=== PATIENT | male | born 1960 | race Caucasian/White ===

== ENCOUNTER 2019-12-31 12:31 | Outpatient (CLI) | payer OTHER, SELFPAY ==
--- NOTE | 2019-12-31 13:07 | MR_ITS ---
WS: [id number] MRI LUMBAR SPINE NONCONTRAST TECHNIQUE: Sagittal T1, T2 and STIR imaging. Axial T1 and T2 imaging. CLINICAL INFORMATION: LOW BACK PAIN COMPARISON: None. FINDINGS: Mild lumbar curve. No acute compression. No high-grade central canal stenosis. L1-L2: Slight annular bulging. Slight narrowing of the left subarticular recess. Spinal canal and for amen are patent. Mild facet arthropathy. L2-L3: Mild annular bulging with slight narrowing of the right subarticular recess. Mild right and no significant left foraminal narrowing. Mild to moderate facet arthropathy. L3-L4: Mild disc bulging with osteophytic ridging. Slight narrowing of the subarticular recess bilate rally. Mild bilateral foraminal narrowing. Moderate facet arthropathy. L4-L5: Mild disc bulging with osteophytic ridging. Slight impingement traversing right L5 nerve root. Mild right greater than left foraminal narrowing. Moderate facet arthropathy. L5-S1: Asymmetric moderate right facet arthropathy. Mild disc bulging with slight effacement of ventr al thecal sac and impingement right S1 nerve root. Mild right and no significant left foraminal narro wing. Normal sacral bony structures. Visualized pelvic bony structures: Normal. Paravertebral soft tissues: Normal. MR/MR lumbar spine wo con* [id number] IMPRESSION: 1. Mild lumbar curve. No acute compression. No high-grade central canal stenos is. 2. Mild disc bulging L3-L4 L4-L5 with slight impingement on the right subartic ular recess L3-L4 and L4-L5. 3. Disc bulging L5-S1 with impingement on the traversing right S1 nerve root a nd mild right foraminal narrowing. 4. Mild to moderate foraminal narrowing described above worse at right L3-4 an d right L4-5. 5. Moderate facet arthropathy L3-L4,L4-L5, and right L5-S1.
== END 2019-12-31 12:32 | disposition home or self-care (01) ==
PROVIDERS: PCP Nurse Practitioner; Visit Provider Nurse Practitioner
DX: M51.26 Other intervertebral disc displacement, lumbar region (principal); M47.816 Spondylosis without myelopathy or radiculopathy, lumbar region; M48.061 Spinal stenosis, lumbar region without neurogenic claudication
CPT/HCPCS: 72148

== ENCOUNTER → 2020-01-17 10:57 | Outpatient (BNVA) | payer OTHER, SELFPAY | PROVIDERS: PCP Nurse Practitioner; Visit Provider Urology | DX: C67.9 Malignant neoplasm of bladder, unspecified (principal) | CPT/HCPCS: 81001; 88112 ==

== ENCOUNTER 2020-01-29 06:50 | Day surgery (SDC) | payer OTHER, SELFPAY ==
[2020-01-25 12:27] VITALS: BMI 32.3
[2020-01-29 07:07] VITALS: RESP 18; TEMP 36.2
[2020-01-29 07:09] VITALS: BP 166/108; PULSE 58; RESP 18; TEMP 36.2
[2020-01-29] MEDS: sodium chloride 0.9% 1,000 ML 30 ML IV (07:23)
--- NOTE | 2020-01-29 07:24 | ANES.PREANE2 ---
Pre-Anesthetic Assessment Pre-Anesthetic Assessment: Height/Weight: Height 1.85 m Weight 111.13 kg Temp Pulse Resp BP 97.2 F L 58 L 18 166/108 01/29/20 07:09 01/29/20 07:09 01/29/20 07:09 01/29/20 07:09 Preop Diagnosis: Incontinence Proposed Procedure: Operation Date: 01/29/20 08:00 Proposed Procedures p Colonoscopy 15377 R15.9(Not Applicable) - Anatoliy Pope MD Familial anesthetic complications: woke up during last scope Last intake: Intake Last Liquid Date 01/28/20 Last Liquid Time 22:00 Last Solid Date 01/28/20 Last Solid Time 07:00 Social: Social History: No alcohol and No tobacco Exam: Pre-Anes Outpt Exam: alert, oriented x 3, clear to auscultation bilaterally and regular rate & rhythm Airway: Cervical ROM: WNL (cervical disc pain) MP: 2 Dentition: Chipped and Caps Pulmonary: Pulmonary: Sleep apnea (bipap) CV/HEM: CV/HEM: HTN Metabolic: Metabolic: Thyroid (nodules) Musc/skel: Comments: muscle twitching/pain in legs due to lumbar spine Anesthetic Plan: ASA status: 2 Anesthesia: MAC Risk of > 500 ml blood loss (7ml/kg in children): No Meds/Allergies Current Medications: Current Medications Generic Name Dose Route Start Last Admin Trade Name Freq PRN Reason Stop Dose Admin Sodium Chloride 1,000 mls @ 30 ml s/hr 01/29/20 07:15 01/29/20 07:23 Sodium Chloride 0.9% IV 30 mls/hr .Q24H DARBY Administration PFSH Anesthesia PFSH: Medical History Bladder cancer BPH (benign prostatic hyperplasia) Cervical radiculopathy Degeneration of intervertebral disc Hyperlipidemia Hypertension Incontinence of bowel Sleep apnea Surgical History H/O circumcision H/O colonoscopy 2014 H/O transurethral destruction of bladder lesion Family History Father , in his 60's Cancer brain stem cancer Sister Cancer Mother Cancer Denies family history of Diabetes Anesthesia complication Bleeding disorder Social History Smoking and tobacco status: former smoker Alcohol intake: never Household members: children Marital status: Current occupational status: disabled History of recent travel: No Data Anesthesia Cardiac Studies: No Data to Display
--- NOTE | 2020-01-29 07:49 | W.PM.OPSUD ---
Surgery/Procedure H&P Update DATE OF PROCEDURE: January 29, 2020 DATE H&P PERFORMED: 01/07/20 H&P UPDATE INFORMATION: I have reviewed H&P completed within last 30 days, I have examined patient prior to procedure and No changes to prior documentation PREOP DIAGNOSIS: Incontinence PLANNED PROCEDURE: Operation Date: 01/29/20 08:00 Proposed Procedures p Colonoscopy 77321 R15.9(Not Applicable) - Anatoliy Pope MD
[2020-01-29 08:07] VITALS: BP 123/82; PULSE 66; RESP 16; TEMP 36.4; O2SAT 94
--- NOTE | 2020-01-29 08:10 | ANE.PACU2 ---
Inpatient post-anesthesia follow up: Airway intact: Yes Vital signs: Temperature 97.5 F Pulse Rate 66 Respiratory Rate 16 Blood Pressure 123/82 Pulse Oximetry 94 Oxygen Delivery Me thod Nasal Cannula Oxygen Flow Rate 3 Fraction of Inspir ed Oxygen Hydration adequate: Yes Nausea and vomiting: No Pain level: 1 Mental status: Baseline
[2020-01-29 08:18] VITALS: BP 122/98; PULSE 64; RESP 18; O2SAT 95
== END 2020-01-29 08:23 | disposition home or self-care (01) ==
PROVIDERS: PCP Nurse Practitioner; Visit Provider Surgery
PROC: 0DJD8ZZ Inspection of Lower Intestinal Tract, Via Natural or Artificial Opening Endoscopic (ICD-10-PCS; CPT 45378; principal; 2020-01-29 08:00)
DX: K57.30 Diverticulosis of large intestine without perforation or abscess without bleeding (principal); K64.8 Other hemorrhoids; I10 Essential (primary) hypertension; G47.30 Sleep apnea, unspecified; E04.2 Nontoxic multinodular goiter; E78.5 Hyperlipidemia, unspecified; N40.0 Benign prostatic hyperplasia without lower urinary tract symptoms; M54.12 Radiculopathy, cervical region; Z85.51 Personal history of malignant neoplasm of bladder; Z86.010 Personal history of colon polyps; Z87.891 Personal history of nicotine dependence
CPT/HCPCS: 12345; 45378; J2704; J7030

== ENCOUNTER 2020-08-05 10:45 | Outpatient (CLI) | payer OTHER, SELFPAY ==
--- NOTE | 2020-08-05 10:52 | MR_ITS ---
WS: [id number] MRI CERVICAL SPINE NONCONTRAST HISTORY: CERVICALGIA COMPARISON: None available. Technique: Multiplanar, multisequence noncontrast imaging of the cervical spine. Very mild straightening of the normal lordosis. Mild disc space narrowing and desiccation throughout the cervical spine. Most significant at C4-5 and C5-6. Signal within the cervical cord is normal. Visualized posterior fossa is unremarkable. Craniocervical junction, C1 and C2 relationship, odontoid process and soft tissues are normal. C2-C3: Normal. C3-C4: Small bilateral foraminal osteophytes without significant stenosis. C4-C5: Diffuse annular disc bulging with a moderate central disc protrusion. Effacement of CSF and co ntact of the disc upon the ventral cord but no displacement. Small foraminal osteophytes and disc pro trusions. [id number] central and bilateral foraminal stenosis. C5-C6: Diffuse annular disc bulging with bilateral disc osteophyte complexes and the foramen. More fo zhang LEFT paracentral disc osteophyte complex. Mild central and LEFT foraminal stenosis. C6-C7: Diffuse annular disc bulging with mild facet arthritis. Mild osteophytic ridging around the ve rtebral bodies. Mild central and bilateral foraminal stenosis. C7-T1: Normal. Paraspinal soft tissue are normal. MR/MR cervical spin wo con* [id number] IMPRESSION: 1. Mild to moderate central and bilateral foraminal stenosis at C4-5 with mild disc osteophyte contact on the ventral cord. 2. Mild central LEFT foraminal stenosis at C5-6 due to disc osteophyte disease . 3. Mild central and bilateral foraminal stenosis at C6-7.
== END 2020-08-05 10:46 | disposition home or self-care (01) ==
LOC: RADSHAW 10:48
PROVIDERS: PCP Nurse Practitioner; Visit Provider Nurse Practitioner
DX: M48.02 Spinal stenosis, cervical region (principal); M25.78 Osteophyte, vertebrae
CPT/HCPCS: 72141

== ENCOUNTER → 2020-10-22 14:06 | Outpatient (BNVA) | payer OTHER, SELFPAY | PROVIDERS: PCP Nurse Practitioner; Referring Provider Nurse Practitioner; Visit Provider Podiatrist Foot & Ankle Surgery | DX: M19.071 Primary osteoarthritis, right ankle and foot (principal); M79.671 Pain in right foot | CPT/HCPCS: 73630 ==

== ENCOUNTER → 2021-12-29 10:13 | Outpatient (BNVA) | payer OTHER, SELFPAY | PROVIDERS: PCP Nurse Practitioner; Referring Provider Nurse Practitioner; Visit Provider Orthopaedic Surgery | DX: M17.11 Unilateral primary osteoarthritis, right knee (principal) | CPT/HCPCS: 99203 ==

== ENCOUNTER → 2022-01-19 09:01 | Outpatient (BNVA) | payer OTHER, SELFPAY | PROVIDERS: PCP Nurse Practitioner; Visit Provider Urology | DX: C67.9 Malignant neoplasm of bladder, unspecified (principal) | CPT/HCPCS: 52000; 99212 ==

== ENCOUNTER → 2022-01-25 10:17 | Outpatient (BNVA) | payer OTHER, SELFPAY | PROVIDERS: PCP Nurse Practitioner; Visit Provider Internal Medicine Cardiovascular Disease | DX: R00.1 Bradycardia, unspecified (principal); I10 Essential (primary) hypertension; E78.5 Hyperlipidemia, unspecified; Z87.891 Personal history of nicotine dependence | CPT/HCPCS: 99204 ==

== ENCOUNTER → 2022-08-02 12:55 | Outpatient (BNVA) | payer OTHER, SELFPAY | PROVIDERS: PCP Nurse Practitioner; Visit Provider Nurse Practitioner Family | DX: I10 Essential (primary) hypertension (principal); R00.1 Bradycardia, unspecified; Z87.891 Personal history of nicotine dependence | CPT/HCPCS: 99214 ==

== ENCOUNTER → 2022-11-29 08:26 | Outpatient (BNVA) | payer OTHER, SELFPAY | PROVIDERS: PCP Nurse Practitioner; Visit Provider Podiatrist Foot & Ankle Surgery | DX: M20.21 Hallux rigidus, right foot (principal); M19.071 Primary osteoarthritis, right ankle and foot | CPT/HCPCS: 73630; 99213 ==

== ENCOUNTER → 2023-01-31 14:53 | Outpatient (BNVA) | payer OTHER, SELFPAY | PROVIDERS: PCP Nurse Practitioner; Visit Provider Internal Medicine Cardiovascular Disease | DX: R00.1 Bradycardia, unspecified (principal); R55 Syncope and collapse | CPT/HCPCS: 93005; 99214 ==

== ENCOUNTER → 2023-04-25 07:52 | Outpatient (BNVA) | payer OTHER, SELFPAY | PROVIDERS: PCP Nurse Practitioner; Visit Provider Podiatrist Foot & Ankle Surgery | DX: M20.21 Hallux rigidus, right foot (principal); M19.071 Primary osteoarthritis, right ankle and foot | CPT/HCPCS: 99214 ==

== ENCOUNTER 2023-05-27 07:17 | Day surgery (SDC) | payer OTHER, SELFPAY ==
[2023-05-27] VITALS (11 sets, daily range): BP systolic 95–154; BP diastolic 64–88; PULSE 45–60; RESP 9–16; TEMP 36.1–36.6; O2SAT 97–100
[2023-05-27] MEDS: sodium chloride 0.9% 1,000 ML 30 ML IV (07:43)
--- NOTE | 2023-05-27 08:35 | ANES.PREANE2 ---
Pre-Anesthetic Assessment Height/Weight: Height 1.85 m Weight 92.986 kg Temp Pulse Resp BP Pulse Ox O2 Del Method 97.9 F 52 L 16 154/88 97 Room Air 05/27/23 07:31 05/27/23 07:31 05/27/23 07:31 05/27/23 07:31 05/27/23 07:31 05/27/23 07:44 Operation Date: 05/27/23 09:20 Proposed Procedures p Right first metatarsal phalangeal joint fusion 68952,M20.21,M79.671,M19.079(Right) - Solomon Orellana DPM Familial anesthetic complications: none Was Beta Jayson taken within 24 hours: N/A Was Clonidine taken within 24 hours: N/A Last intake: Intake Last Liquid Date 05/26/23 Last Liquid Time 20:30 Last Solid Date 05/26/23 Last Solid Time 20:30 Social No alcohol and No tobacco Exam alert, oriented x 3, clear to auscultation bilaterally and regular rate & rhythm Airway Submandibular: within normal limits Cervical ROM: within normal limits Mallampati: Class II Dentition: full CV/HEM Arrythmia and Hypertension Metabolic Hyperlipidemia Anesthetic Plan ASA status: 2 Anesthesia: Choice Medications/Allergies Home Medications Medication Instructions Recorded Confirmed Last Taken Type Functional Co-poly custom insole #1 11/29/22 04/25/23 Unknown Rx with monson's extension pad to right Orthopedic Shoes #1 ea 11/29/22 04/25/23 Unknown Rx diclofenac sodium 1 % topical gel 4 g topical QID #100 grams 11/29/22 05/27/23 05/26/23 Rx (Voltaren Arthritis Pain) Knee scooter #1 ea 04/25/23 04/25/23 Unknown Rx Allergies Allergy/AdvReac Type Severity Reaction Status Date / Time No Known Allergies Allergy Verified 05/27/23 07:36 Current Medications Generic Name Dose Route Start Last Admin Trade Name Freq PRN Reason Stop Dose Admin Sodium Chloride 1,000 mls @ 30 mls/hr 05/27/23 07:45 05/27/23 07:43 Sodium Chloride 0.9% IV 05/28/23 07:44 30 mls/hr .Q24H DARBY Administration PFSH Anesthesia Medical History Bladder cancer BPH (benign prostatic hyperplasia) Cervical radiculopathy Degeneration of intervertebral disc Hyperlipidemia Hypertension Incontinence of bowel Sleep apnea Surgical History H/O circumcision H/O colonoscopy (01/29/20) Diverticulosis, internal hemorrhoids, repeat in 10 years H/O transurethral destruction of bladder lesion Family History Father , in his 60's Cancer brain stem cancer Sister Cancer Mother Cancer Hypertension Social History Smoking and tobacco/nicotine status: former use of tobacco/nicotine Alcohol intake: never Substance/Drug Use: never Household members: children Marital status: Current occupational status: disabled Data Anesthesia Cardiac Studies: Cardiac Event Monitor 01/31/23
[2023-05-27] MEDS: midazolam 1 mg/mL INJ 2 mL 2 MG IVP (09:07)
--- NOTE | 2023-05-27 09:20 | W.PM.OPSUD ---
Surgery/Procedure H&P Update DATE OF PROCEDURE: May 27, 2023 DATE H&P PERFORMED: 01/07/20 H&P UPDATE INFORMATION: I have reviewed H&P completed within last 30 days, I have examined patient prior to procedure, No changes to prior documentation and H&P is in [facility] EMR on date indicated PLANNED PROCEDURE: Operation Date: 05/27/23 09:20 Proposed Procedures p Right first metatarsal phalangeal joint fusion 14313,M20.21,M79.671,M19.079(Right) - Solomon Orellana DPM
[2023-05-27] MEDS: ceFAZolin 2,000 MG in sodium chloride 0.9% (plus) 50 ML 100 MG IV (09:26)
[2023-05-27] MEDS: BUPivacaine liposome 13.3 mg/mL SDV 10 mL 266 MG INJECTION (09:41)
[2023-05-27] MEDS: BUPivacaine 0.5% INJ 30 mL 20 ML INJECTION (09:41)
--- NOTE | 2023-05-27 10:59 | PM.OP ---
Operative Report Date of procedure: May 27, 2023 Pre-op diagnosis: Right hallux rigidus Post-op diagnosis: Right hallux rigidus Procedure done: Right first metatarsal phalangeal joint fusion. CPT code 28354 Implants: [place] first MTP arthrodesis plate [place] 2.7 mm locking screws, to [place] 3.5 mm locking and nonlocking screws. [place] 3.0 mm homerun screw. 3-0 Vicryl, 4-0 Vicryl, 4-0 nylon Specimens removed/disposition: None Pathology: None Surgeon: Solomon Orellana DPM Product Management Internship: Dejah Pichardo Estimated blood loss: 2 40 IV fluids: 0 Urine output: 0 Complications: None Brief History: I reviewed at length with the patient, the risks, potential complications, benefits, alternatives, expectations, and typical outcomes associated with the surgery. The risks and potential complications were explained in detail, including but not limited to infection, wound dehiscence or soft tissue complications, bleeding and hematoma, chronic edema, neuritis or nerve damage producing numbness or chronic pain, CRPS, failure to relieve pain or worsening pain, thick / painful / unsightly scar, limited motion / stiffness, malposition, delayed union, malunion, or nonunion, fracture, reaction to implants, anesthetic complications, venous thromboembolism, and deformity recurrence. I discussed the notion of no regrets with the patient as it pertains to complications and outcomes. The patient seemed to understand the nature of the proposed care and required convalescence. They asked appropriate questions, answered to their satisfaction. They are aware no guarantees can be made as to a satisfactory outcome and they understand there may be other possible unforeseen complications or outcomes not listed here that will be treated accordingly if they arise. There were no written or implied guarantees given to the patient. They gave informed consent to proceed. Procedure: Under mild sedation the patient was brought to the operating room remained on the gurney in supine position. A timeout was performed. Anesthesia was then administered by the anesthesia service. Local anesthesia injected by myself consisting of 20 cc of 0.5 to Marcaine plain in a right foot Young block fashion with additional 20 cc infiltrated subcutaneously in a grid like fashion at the operative site. Well-padded pneumatic tourniquet applied to the right ankle. The right lower extremity was scrubbed, prepped and draped utilizing normal aseptic technique. Right foot was exanguinated with an Esmarch bandage and tourniquet inflated to 250 mmHg. Tension was directed to the dorsal aspect of the right first metatarsal phalangeal joint where a linear longitudinal incision was made medial and parallel to the extensor hallucis longus tendon through skin. Dissection was carried down through subcutaneous tissue to the layer of joint capsule utilizing sharp and blunt technique. Care was taken to retract and preserve neurovascular and tendinous structures. All bleeders were ligated and cauterized as necessary. Dorsal osteophytes were encountered and loose chondral bodies at the dorsal aspect of the first metatarsal phalangeal joint. Less than 10 degrees of dorsiflexion appreciated intraoperatively at this time at the first metatarsal phalangeal joint. Head of the first metatarsal and base of the proximal phalanx were denuded of articular surface and remodeled to normal contour utilizing a rongeur and oscillating saw. Incision was irrigated skin solution. Cone and cup reamers were utilized to denude the articular surface at the arthrodesis site followed by saline flush then subchondral drilling with fenestrating drill bit. Toe was held in rectus position and then position slightly valgus with neutral frontal plane and slight dorsiflexion followed by dorsal locking plate fixation with 2.7 millimeter screws distally and 3.5 millimeter screws proximally and a 3 mm homerun screw with excellent bony apposition and compression noted. AP, oblique and lateral views confirmed excellent placement of hardware without violating adjacent joints. The incision was irrigated with saline solution. Loading the right foot with a flat plate demonstrated excellent position and purchase of the right great toe. The incision was then closed in a layered fashion with capsule being reapproximated with 3-0 Vicryl, subcutaneous tissue reapproximated 4-0 Vicryl and skin with 4-0 nylon. The incision was dressed with Adaptic, sterile 4 x 4's, Kerlix and Sinan wrap followed by application of a cam boot. Tourniquet was deflated and a prompt hyperemic response was noted to the distal digits of the right foot. Patient tolerated the procedure and anesthesia well and was transferred to the PACU with vital signs stable and vascular status intact. Following a period of postoperative monitoring be discharged home is to be nonweightbearing to the right foot and elevate right foot while resting at all times he is to remain immobilized with a cam boot at all times of the right foot. Was given at home care instructions, scheduled follow-up and my cell phone number to contact me with any postoperative questions or concerns.
--- NOTE | 2023-05-27 11:00 | W.PM.BPON ---
Date of Procedure: 05/27/23 Surgeon: Solomon Orellana DPM Wire Turning Machine Operator(s): Marino Pond Procedure(s) performed: Right first metatarsal phalangeal joint fusion Findings of the procedure(s): None Estimated blood loss: 2 mL Specimen(s) removed: None Post-operative diagnosis: Right hallux rigidus No complications with anesthesia or procedure.
[2023-05-27] MEDS: HYDROcodone-acetaminophen 10-325 mg Tablet 1 TAB PO (11:21)
[2023-05-27] MEDS: famotidine 20 mg/2 mL INJ IVP (11:57)
--- NOTE | 2023-05-27 14:05 | ANE.PACU2 ---
Inpatient post-anesthesia follow up: Airway intact: Yes Vital signs: Temperature 97.0 F Pulse Rate 48 Respiratory Rate 16 Blood Pressure 115/81 Pulse Oximetry 100 Oxygen Delivery Me thod Room Air Oxygen Flow Rate 6 Fraction of Inspir ed Oxygen Hydration adequate: Yes Nausea and vomiting: No Pain level: 1 Mental status: Baseline
--- NOTE | 2023-05-31 | XR_ITS ---
WS: [id number] INTRAOPERATIVE TECHNIQUE: 2 Spot fluoroscopic images for intraoperative purposes. FLUOROSCOPY TIME: 11 seconds CLINICAL INFORMATION: METATARSAL PHALANGEAL JOINT FUSION, OR PIC COMPARISON: None. FINDINGS: Plate and screw fixation first MTP. Images obtained for intraoperative purposes. IMPRESSION: Images obtained for intraoperative purposes.
== END 2023-05-27 11:47 | disposition home or self-care (01) ==
PROVIDERS: PCP Nurse Practitioner; Visit Provider Podiatrist Foot & Ankle Surgery
PROC: (CPT 28740; principal; 2023-05-27 09:10)
DX: M20.21 Hallux rigidus, right foot (principal); I10 Essential (primary) hypertension; E78.5 Hyperlipidemia, unspecified; Z85.51 Personal history of malignant neoplasm of bladder; N40.0 Benign prostatic hyperplasia without lower urinary tract symptoms; G47.30 Sleep apnea, unspecified; Z87.891 Personal history of nicotine dependence
CPT/HCPCS: 28750; 73620; 76000; C1713; C9290; J0690; J2250; J2704; J3490; J7030

== ENCOUNTER → 2023-06-09 13:45 | Outpatient (BNVA) | payer OTHER, SELFPAY | PROVIDERS: PCP Nurse Practitioner; Visit Provider Podiatrist Foot & Ankle Surgery | DX: Z98.890 Other specified postprocedural states (principal) | CPT/HCPCS: 73630; 99024 ==

== ENCOUNTER → 2023-06-23 14:12 | Outpatient (BNVA) | payer OTHER, SELFPAY | PROVIDERS: PCP Nurse Practitioner; Visit Provider Podiatrist Foot & Ankle Surgery | DX: Z98.890 Other specified postprocedural states (principal) | CPT/HCPCS: 73630; 99024 ==

== ENCOUNTER → 2023-07-07 12:40 | Outpatient (BNVA) | payer OTHER, SELFPAY | PROVIDERS: PCP Nurse Practitioner; Visit Provider Podiatrist Foot & Ankle Surgery | DX: Z98.890 Other specified postprocedural states (principal); Z12.11 Encounter for screening for malignant neoplasm of colon | CPT/HCPCS: 73630; 99024; 99203 ==

== ENCOUNTER → 2023-08-04 12:45 | Outpatient (BNVA) | payer OTHER, SELFPAY | PROVIDERS: PCP Nurse Practitioner; Visit Provider Podiatrist Foot & Ankle Surgery | DX: Z98.890 Other specified postprocedural states (principal) | CPT/HCPCS: 73630; 99024 ==

== ENCOUNTER → 2023-08-08 12:42 | Outpatient (BNVA) | payer OTHER, SELFPAY | PROVIDERS: PCP Nurse Practitioner; Visit Provider Internal Medicine | DX: R55 Syncope and collapse (principal); R00.1 Bradycardia, unspecified; I10 Essential (primary) hypertension; E78.5 Hyperlipidemia, unspecified; N40.0 Benign prostatic hyperplasia without lower urinary tract symptoms; Z87.891 Personal history of nicotine dependence | CPT/HCPCS: 99213 ==

== ENCOUNTER → 2023-09-29 12:18 | Outpatient (BNVA) | payer OTHER, SELFPAY | PROVIDERS: PCP Nurse Practitioner; Visit Provider Podiatrist Foot & Ankle Surgery | DX: M20.21 Hallux rigidus, right foot; M20.22 Hallux rigidus, left foot | CPT/HCPCS: 73630; 99213 ==

== ENCOUNTER 2023-11-17 05:44 | Day surgery (SDC) | payer OTHER, SELFPAY ==
--- NOTE | 2023-11-17 06:02 | W.PM.OPSFHP ---
Same Day Surgery H&P Indication for Procedure/HPI DATE OF PROCEDURE: November 17, 2023 CHIEF COMPLAINT/INDICATIONFOR SURGICAL PROCEDURE: need for screening colonoscopy and GERD PREOP DIAGNOSIS: GERD PLANNED PROCEDURE: Operation Date: 11/17/23 07:00 Proposed Procedures s 35995 colonoscopy G0121 screen colon a risk Z12.11(Not Applicable) - Cabrera Ferrell MD p EGD 33840, R13.10(Not Applicable) - Cabrera Ferrell MD Medications/Allergies* Home Medications Medication Instructions Recorded Confirmed Type hydrocodone 10 mg-acetaminophen 1 tab PO Q6H PRN Pain 07/07/23 11/15/23 History 325 mg tablet diclofenac sodium 1 % topical gel 4 g topical QID PRN Pain 11/15/23 11/15/23 History (Voltaren Arthritis Pain) Allergies/Adverse Reactions Allergy/AdvReac Type Severity Reaction Status Date / Time No Known Allergies Allergy Verified 11/15/23 12:50 Pertinent History/Comorbid Conditions* Medical History (Updated 09/29/23 @ 12:45 by Solomon Orellana DPM) Incontinence of bowel Sleep apnea Degeneration of intervertebral disc Cervical radiculopathy Hyperlipidemia BPH (benign prostatic hyperplasia) Hypertension Bladder cancer Surgical History (Updated 05/27/23 @ 10:32 by Solomon Orellana DPM) H/O transurethral destruction of bladder lesion H/O circumcision H/O colonoscopy (01/29/20) Diverticulosis, internal hemorrhoids, repeat in 10 years Family History (Updated 01/25/22 @ 10:35 by Vandana Marsh RN) Father, in his 60's Cancer Father brain stem cancer Sister Mother Hypertension Mother Social History Smoking and tobacco/nicotine status: former use of tobacco/nicotine Alcohol intake: never Substance/Drug Use: never Household members: children Marital status: Current occupational status: disabled Pertinent Exam Findings alert, oriented x 3, clear to auscultation bilaterally and regular rate & rhythm Recommendations Surgery/Procedure today (I have also discussed the risk of perforation of esophagus, stomach and duodenum during upper endoscopy and he agrees to proceed) Coding Level of Care Code Acute Code for Chg Fwd
[2023-11-17 06:10] VITALS: BP 142/107; PULSE 62; RESP 16; TEMP 36.4; O2SAT 99; BMI 28.5
[2023-11-17] MEDS: sodium chloride 0.9% 1,000 ML 30 ML IV (06:12)
--- NOTE | 2023-11-17 07:01 | ANES.PREANE2 ---
Pre-Anesthetic Assessment Height/Weight: Height 1.83 m Weight 95.254 kg Temp Pulse Resp BP Pulse Ox O2 Del Method 97.5 F L 62 16 142/107 99 Room Air 11/17/23 06:10 11/17/23 06:10 11/17/23 06:10 11/17/23 06:10 11/17/23 06:10 11/17/23 06:10 Preop Diagnosis: GERD Operation Date: 11/17/23 07:00 Proposed Procedures s 95525 colonoscopy G0121 screen colon a risk Z12.11(Not Applicable) - Cabrera Ferrell MD p EGD 16993, R13.10(Not Applicable) - Cabrera Ferrell MD Familial anesthetic complications: none Was Beta Jayson taken within 24 hours: N/A Was Clonidine taken within 24 hours: N/A Last intake: Intake Last Liquid Date 11/16/23 Last Liquid Time 21:00 Last Solid Date 11/15/23 Last Solid Time 19:00 Social No alcohol and No tobacco Exam alert and oriented x 3 Airway Submandibular: within normal limits Cervical ROM: within normal limits Mallampati: Class I Dentition: full History/ROS No significant history except as noted Pulmonary None reported CV/HEM None reported None reported Hepatic None reported GI None reported Metabolic Hyperlipidemia [facility] None reported Neuropsych None reported Anesthetic Plan ASA status: 2 Anesthesia: Anesthesia Evaluation, General and MAC Medications/Allergies Home Medications Medication Instructions Recorded Confirmed Last Taken Type Knee scooter #1 ea 04/25/23 11/17/23 09/19/23 Rx hydrocodone 10 mg-acetaminophen 1 tab PO Q6H PRN Pain 07/07/23 11/17/23 09/19/23 History 325 mg tablet Functional Co-poly custom insole #1 ea 09/29/23 11/17/23 09/19/23 Rx with monson's extension pad to right Orthopedic Shoes #1 ea 09/29/23 11/17/23 09/19/23 Rx diclofenac sodium 1 % topical gel 4 g topical QID PRN Pain 11/15/23 11/17/23 3 Days Ago History (Voltaren Arthritis Pain) ~11/14/23 Allergies Allergy/AdvReac Type Severity Reaction Status Date / Time No Known Allergies Allergy Verified 11/17/23 06:07 Current Medications Generic Name Dose Route Start Last Admin Trade Name Freq PRN Reason Stop Dose Admin Sodium Chloride 1,000 mls @ 30 mls/hr 11/17/23 06:00 11/17/23 06:12 Sodium Chloride 0.9% IV 11/18/23 05:59 30 mls/hr .Q24H DARBY Administration PFSH Anesthesia Medical History Incontinence of bowel Sleep apnea Degeneration of intervertebral disc Cervical radiculopathy Hyperlipidemia BPH (benign prostatic hyperplasia) Hypertension Bladder cancer Surgical History H/O transurethral destruction of bladder lesion H/O circumcision H/O colonoscopy (01/29/20) Diverticulosis, internal hemorrhoids, repeat in 10 years Family History Father , in his 60's Cancer brain stem cancer Sister Cancer Mother Cancer Hypertension Social History Smoking and tobacco/nicotine status: former use of tobacco/nicotine Alcohol intake: never Substance/Drug Use: never Household members: children Marital status: Current occupational status: disabled Data Anesthesia Cardiac Studies: Cardiac Event Monitor 01/31/23
[2023-11-17 07:31] VITALS: BP 103/66; PULSE 52; RESP 18; TEMP 36.6; O2SAT 98
--- NOTE | 2023-11-17 07:36 | ANE.PACU2 ---
Inpatient post-anesthesia follow up: Airway intact: Yes Vital signs: Temperature 97.5 F Pulse Rate 62 Respiratory Rate 16 Blood Pressure 142/107 Pulse Oximetry 99 Oxygen Delivery Me thod Room Air Oxygen Flow Rate Fraction of Inspir ed Oxygen Hydration adequate: Yes Nausea and vomiting: No Pain level: 1 Mental status: Baseline
[2023-11-17 07:42] VITALS: BP 129/79; PULSE 51; RESP 18; O2SAT 97
[2023-11-17 07:57] VITALS: BP 130/70; PULSE 51; RESP 18; O2SAT 99
== END 2023-11-17 08:15 | disposition home or self-care (01) ==
PROVIDERS: PCP Nurse Practitioner; Visit Provider Surgery
PROC: 0DJD8ZZ Inspection of Lower Intestinal Tract, Via Natural or Artificial Opening Endoscopic (ICD-10-PCS; CPT 45378; principal; 2023-11-17 07:00)
PROC: 0DJ08ZZ Inspection of Upper Intestinal Tract, Via Natural or Artificial Opening Endoscopic (ICD-10-PCS; CPT 43235; 2023-11-17 07:00)
DX: Z12.11 Encounter for screening for malignant neoplasm of colon (principal); K21.9 Gastro-esophageal reflux disease without esophagitis; K29.50 Unspecified chronic gastritis without bleeding; G47.30 Sleep apnea, unspecified; E78.5 Hyperlipidemia, unspecified; N40.0 Benign prostatic hyperplasia without lower urinary tract symptoms; I10 Essential (primary) hypertension; Z85.51 Personal history of malignant neoplasm of bladder; Z87.891 Personal history of nicotine dependence; K57.30 Diverticulosis of large intestine without perforation or abscess without bleeding
CPT/HCPCS: 43239; 45378; 88305; J2704; J7030

== ENCOUNTER → 2023-12-27 13:17 | Outpatient (BNVA) | payer OTHER, SELFPAY | PROVIDERS: PCP Nurse Practitioner; Visit Provider Surgery | DX: Z09 Encounter for follow-up examination after completed treatment for conditions other than malignant neoplasm (principal) | CPT/HCPCS: 99213 ==

== ENCOUNTER → 2024-10-03 10:34 | Outpatient (BNVA) | payer OTHER, SELFPAY | PROVIDERS: PCP Nurse Practitioner; Visit Provider Podiatrist Foot & Ankle Surgery | DX: M20.21 Hallux rigidus, right foot (principal); M20.22 Hallux rigidus, left foot | CPT/HCPCS: 99213 ==